=== PATIENT | female | born 2000 | race Caucasian/White ===

== ENCOUNTER → 2025-03-11 | Outpatient (CLI) | payer BC, SELFPAY ==
--- NOTE | 2025-03-11 08:31 | BD_ITS ---
EXAM: DEXA BONE DENSITY STUDY 03/11/2025 REASON FOR EXAM: F,24 y/o possible osteopenia. TECHNIQUE: DXA scan of the lumbar spine and both hips, using make and model. REFERENCE LINKS: ISCD Pediatric Positions ISCD Adult Positions COMPARISON: None FINDINGS: BMD and Z-SCORES Lumbar spine: 0.958 g/cm2, Z-Score -0.8 L1 through L4 Left femoral neck: 0.745 g/cm2, Z-Score -0.9 Femoral neck comparison data not recommended for monitoring change. Left total hip: 0.849 g/cm2, Z-Score -0.8 Right femoral neck: 0.720 g/cm2, Z-Score -1.2 Femoral neck comparison data not recommended for monitoring change. Right total hip: 0.871 g/cm2, Z-Score -0.6 The patient does meet the pharmacological treatment recommendations for prevention of osteoporosis BD/Dexa Bone Density Study IMPRESSION: Osteopenia. Recommend follow-up, if clinically warranted. Reading Location: [place] [id number]
--- NOTE | 2025-03-11 08:42 | EKG12_ITS ---
Test Reason : WEIGHTLOSS ABN Blood Pressure : */* mmHG Vent. Rate : 98 BPM Atrial Rate : 98 BPM P-R Int : 130 ms QRS Dur : 86 ms QT Int : 316 ms P-R-T Axes : 91 78 70 degrees QTcB Int : 403 ms Normal sinus rhythm with sinus arrhythmia Right atrial enlargement Borderline ECG Confirmed by BRENDAN LEVY, DREAD ([id number]), book or script editor MICHA MACDONALD ([id number]) on 03/12/2025 7:56:12 AM Referred By: Brooke Ortez Confirmed By: DREAD CARDONA MD
[2025-03-11 10:10] LABS: Absolute Lymphocyte Count 2.25 X10^3/uL (0.83-4.51); Absolute Neutrophil Count 4.3 X10^3/uL (2.0-7.7); Basophil# 0.04 X10^3/uL; Basophil% 0.6 % (0-1); Eosinophil# 0.07 X10^3/uL; Hematocrit 41.9 % (37-47); Hemoglobin 13.8 g/dL (12.0-15.0); Lymphocyte # 2.25 X10^3/ul (0.83-4.51); Mean Corp Hgb Conc 32.9 g/dL (32-36); Mean Corpuscular Hgb 30.5 pg (27.0-32.0); Mean Corpuscular Volume 92.5 fL (81-99); Mean Platelet Vol. 11.6 fl (6.2-12.0); Monocyte# 0.63 X10^3/uL; Monocyte% 8.7 % (0-10); NRBC Flagged by Analyzer 0 % (0-5); Neutrophil # 4.25 X10^3/uL (2.7-7.7); Neutrophil % 58.6 % (47-70); Platelet Count 218 K/mm3 (150-450); RBC Distribution Width CV 13.2 % (11.6-14.6); Red Blood Count 4.53 M/mm3 (4.2-5.4); White Blood Count 7.3 K/mm3 (4.4-11.0)
[2025-03-11 10:15] LABS: Color, Urine Yellow (Yellow); Glucose, Dipstick Normal (Normal); Ketone-Dipstick Negative (Negative); Leukocyte Esterase-Dipstick Negative /ul (Negative); Nitrite-Dipstick Negative (Negative); Occult Blood-Urine 10 /ul (Negative); Protein-Dipstick 15 mg/dl (Negative); Urine Bilirubin Dipstick Negative (Negative); Urine Clarity Clear (Clear); Urine Urobilinogen Normal (Normal)
[2025-03-11 10:39] LABS: Mucous, Urine 2+ /hpf (<or=2+); Red Blood Cells-Urine 0-5 SEEN /hpf (0-5); Squamous Epithelial Cells - UA 0-5 SEEN /hpf (5-10); White Blood Cells 0-5 SEEN /hpf (0-5)
[2025-03-11 10:40] LABS: Bacteria 1+ /hpf (None Seen); Hyaline Cast 0-5 SEEN /lpf (0-5)
[2025-03-11 11:32] LABS: ALB/GLOB Ratio 1.7 RATIO (0.9-2.4); AST(SGOT) 26 U/L (<=31); Alanine Aminotransfer ALT/SGPT 24 U/L (<=34); Albumin, Serum 4.6 g/dL (3.5-5.0); Alkaline Phosphatase 61 U/L (35-104); Anion Gap 12 (5-15); BUN 14 mg/dL (4-19); BUN/Creat Ratio 20.9 RATIO (10-20); Calcium,Total 9.9 mg/dL (7.6-11.0); Carbon Dioxide 21.8 mmol/L (21.0-32.0); Chloride 106 mmol/L (98-108); Creatinine, Serum 0.66 mg/dL (0.70-1.20); EST Glomerular Filtration Rate 127 (>60); Ferritin 40 ng/mL (22-378); Globulin 2.7 g/dL (2.2-4.2); Glucose 94 mg/dL (70-99); HIV Nonreactive (Nonreactive); Hepatitis C Antibody Nonreactive (Nonreactive); Iron 101 ug/dL (50-170); Iron Binding Capacity,Total 309 ug/dL (250-450); Iron Binding Capacity,Unsat 208 ug/dL (228-428); Magnesium 2.3 mg/dL (1.5-2.2); Phosphorus 2.8 mg/dL (2.7-4.5); Potassium 4.3 mmol/L (3.3-5.1); Protein, Total 7.4 g/dL (5.9-8.4); Sodium Level 140 mmol/L (133-145); Syphilis Antibodies Nonreactive (Nonreactive); Total Bilirubin 0.35 mg/dL (0.00-1.30); Vitamin B12 896 pg/mL (180-914)
[2025-03-15 03:07] LABS: Vitamin B1, Thiamine 113.4 nmol/L (66.5-200.0); Zinc, Plasma or Serum 66 ug/dL (44-115)
== END | disposition home or self-care (01) ==
PROVIDERS: PCP Nurse Practitioner Family; Referring Provider Nurse Practitioner Family; Visit Provider Nurse Practitioner Family
DX: Z00.00 Encounter for general adult medical examination without abnormal findings (principal); Z13.820 Encounter for screening for osteoporosis; Z11.3 Encounter for screening for infections with a predominantly sexual mode of transmission; F50.82 Avoidant/restrictive food intake disorder; E44.0 Moderate protein-calorie malnutrition; R63.4 Abnormal weight loss
CPT/HCPCS: 36415; 77080; 80053; 81001; 82607; 82728; 82746; 83540; 83550; 83735; 84100; 84425; 84630; 85025; 86703; 86780; 86803; 93005